=== PATIENT | female | born 1950 | race Caucasian/White ===

== ENCOUNTER 2017-12-01 17:51 | Emergency (ER) | payer SELFPAY ==
[~2017-12-01 17:51] MED LIST: Alora1 EAC1 TD; BUPR150T2 PO; CHOL10002; LEVSOD75 PO
== END 2017-12-01 18:21 | disposition left against medical advice (07) ==
LOC: ER 17:51
DX: Z53.21 Procedure and treatment not carried out due to patient leaving prior to being seen by health care provider (principal)

== ENCOUNTER → 2018-04-13 | Outpatient (CLI) | payer OTHER ==
[2018-04-13 13:21] LABS: Protein, Urine Random <5.0 mg/dL (0.0-11.9)
== END ==
LOC: LAB SHORT 12:26 → LAB 12:26
PROVIDERS: Internal Medicine
DX: N00.9 Acute nephritic syndrome with unspecified morphologic changes (principal)
CPT/HCPCS: 82570; 84156

== ENCOUNTER 2018-09-17 08:38 | Day surgery (SDC) | payer MEDICARE ==
[~2018-09-17] VITALS: Ht 160 cm; Wt 69.8 kg
[~2018-09-17 08:38] MED LIST changes: +ALPR.5 PO; +Budeprion Xl300 MG PO; +PARO20 PO
[2018-09-17] MEDS ORDERED: LISI20 PO (09:18)
--- NOTE | 2018-09-17 09:24 | NUR ---
09/17/18 0924 Ann Marie Merlos V PT RESTING IN BED, SIDE RAILS IN PLACE, CALL LIGHT WITHIN REACH, VSS. PT TEACHING COMPLETED, PT DENIES DISCOMFORT AND QUESTIONS AT THIS TIME.
--- NOTE | 2018-09-17 11:31 | NUR ---
09/17/18 1131 Kerry Shore RESTING IN CHAIR, SIPPING H20 DENIED NAUSEA AND STATES PAIN IS TOLERABLE, MEDICATED AT 1120 W/TRAMADOL. PT REQUESTED TO WAIT TO BRING FAMILY BACK FOR A BIT. LEG UP ON PILLOW ICE PACK BEHIND KNEE.
== END 2018-09-17 12:25 | disposition home or self-care (01) ==
LOC: ORSCSDS 08:38
PROVIDERS: Podiatrist Foot & Ankle Surgery
PROC: 0SGN04Z Fusion of Left Metatarsal-Phalangeal Joint with Internal Fixation Device, Open Approach (ICD-10-PCS; principal; 2018-09-17 10:15)
DX: M20.22 Hallux rigidus, left foot (principal); M20.12 Hallux valgus (acquired), left foot; I12.9 Hypertensive chronic kidney disease with stage 1 through stage 4 chronic kidney disease, or unspecified chronic kidney disease; N18.3 Chronic kidney disease, stage 3 (moderate); E03.9 Hypothyroidism, unspecified; E78.5 Hyperlipidemia, unspecified; Z79.899 Other long term (current) drug therapy
CPT/HCPCS: C1713; C1769; J0690; J1100; J2405; J3010; J7120

== ENCOUNTER 2019-05-16 07:27 | Day surgery (SDC) | payer MEDICARE ==
[~2019-05-16] VITALS: Ht 160 cm; Wt 73.4 kg
[~2019-05-16 07:27] MED LIST changes: +ERGO50000 PO; +Estradiol0.5 MG PO; +GABA300 PO; +LISI20 PO; +MOTION RELIEF25 MG PO; +Prinivil10 MG PO
--- NOTE | 2019-05-16 08:19 | NUR ---
05/16/19 0819 Tati Mccormick 2 IV ATTEMPTS BY KT, 1ST IN L HAND INFILTRATED, 2ND IN L HAND WAS SUCCESSFUL
== END 2019-05-16 10:36 | disposition home or self-care (01) ==
LOC: ORSCSDS 07:27
PROVIDERS: Orthopaedic Surgery
PROC: 01N50ZZ Release Median Nerve, Open Approach (ICD-10-PCS; principal; 2019-05-16 08:45)
DX: G56.01 Carpal tunnel syndrome, right upper limb (principal); I10 Essential (primary) hypertension; E03.9 Hypothyroidism, unspecified; F32.9 Major depressive disorder, single episode, unspecified; Z79.899 Other long term (current) drug therapy
CPT/HCPCS: J0690; J2250; J3010; J7120

== ENCOUNTER 2020-06-01 12:26 | Day surgery (SDC) | payer MEDICARE ==
[~2020-06-01] VITALS: Ht 160 cm; Wt 73.8 kg
== END 2020-06-01 14:50 | disposition home or self-care (01) ==
LOC: ORSCSDS 12:26
PROVIDERS: Internal Medicine Gastroenterology
PROC: 0DBE8ZX Excision of Large Intestine, Via Natural or Artificial Opening Endoscopic, Diagnostic (ICD-10-PCS; principal; 2020-06-01 13:45)
PROC: 0DBB8ZX Excision of Ileum, Via Natural or Artificial Opening Endoscopic, Diagnostic (ICD-10-PCS; principal; 2020-06-01 13:45)
DX: R19.7 Diarrhea, unspecified (principal); K52.832 Lymphocytic colitis; K64.8 Other hemorrhoids; Z87.11 Personal history of peptic ulcer disease; E78.5 Hyperlipidemia, unspecified; E03.9 Hypothyroidism, unspecified; I12.9 Hypertensive chronic kidney disease with stage 1 through stage 4 chronic kidney disease, or unspecified chronic kidney disease; N18.30 Chronic kidney disease, stage 3 unspecified; F32.9 Major depressive disorder, single episode, unspecified; Z87.891 Personal history of nicotine dependence; Z79.899 Other long term (current) drug therapy
CPT/HCPCS: 88305; J2704; J7120

== ENCOUNTER → 2020-11-16 | Outpatient (CLI) | payer MEDICARE ==
[2020-11-16 16:52] LABS: Adenovirus F 40/41 Not Detected (NOT DETECT); Astrovirus Not Detected (NOT DETECT); Campylobacter Sp Not Detected (NOT DETECT); Cryptosporidium Not Detected (NOT DETECT); Cyclospora Cayetanensis Not Detected (NOT DETECT); E. Coli O157 Not Detected (NOT DETECT); Entamoeba Histolytica Not Detected (NOT DETECT); Enteroaggregative E. coli-EAEC Not Detected (NOT DETECT); Enteropathogenic E. coli-EPEC Not Detected (NOT DETECT); Enterotoxigenic E. coli-ETEC Not Detected (NOT DETECT); Giardia Lamblia Not Detected (NOT DETECT); Norovirus GI/GII Not Detected (NOT DETECT); Plesiomonas Shigelloides Not Detected (NOT DETECT); Rotavirus A Not Detected (NOT DETECT); Salmonella Sp Not Detected (NOT DETECT); Sapovirus Not Detected (NOT DETECT); Shiga Toxin-prod E. coli-STEC Not Detected (NOT DETECT); Shigella/Enteroin E. coli-EIEC Not Detected (NOT DETECT); Vibrio Cholerae Not Detected (NOT DETECT); Vibrio Sp Not Detected (NOT DETECT); Yersinia Enterocolitica Not Detected (NOT DETECT)
== END | disposition home or self-care (01) ==
LOC: LAB SHORT 12:00
PROVIDERS: Internal Medicine Gastroenterology
DX: R19.7 Diarrhea, unspecified (principal)
CPT/HCPCS: 0097U

== ENCOUNTER → 2022-10-09 | Outpatient (CLI) | payer MEDICARE, OTHER ==
[2022-10-10 00:47] LABS: Adenovirus F 40/41 Not Detected (NOT DETECT); Astrovirus Not Detected (NOT DETECT); Campylobacter Sp Not Detected (NOT DETECT); Cryptosporidium Not Detected (NOT DETECT); Cyclospora Cayetanensis Not Detected (NOT DETECT); E. Coli O157 Not Detected (NOT DETECT); Entamoeba Histolytica Not Detected (NOT DETECT); Enteroaggregative E. coli-EAEC Not Detected (NOT DETECT); Enteropathogenic E. coli-EPEC Not Detected (NOT DETECT); Enterotoxigenic E. coli-ETEC Not Detected (NOT DETECT); Giardia Lamblia Not Detected (NOT DETECT); Norovirus GI/GII Not Detected (NOT DETECT); Plesiomonas Shigelloides Not Detected (NOT DETECT); Rotavirus A Not Detected (NOT DETECT); Salmonella Sp Not Detected (NOT DETECT); Sapovirus Not Detected (NOT DETECT); Shiga Toxin-prod E. coli-STEC Not Detected (NOT DETECT); Shigella/Enteroin E. coli-EIEC Not Detected (NOT DETECT); Vibrio Cholerae Not Detected (NOT DETECT); Vibrio Sp Not Detected (NOT DETECT); Yersinia Enterocolitica Not Detected (NOT DETECT)
== END | disposition home or self-care (01) ==
LOC: LAB SHORT 11:05
PROVIDERS: Physician Assistant Medical
DX: K52.832 Lymphocytic colitis (principal)
CPT/HCPCS: 87507